=== PATIENT | male | born 1990 | race Hispanic/Latino ===

== ENCOUNTER 2024-05-18 20:27 | Emergency (ER) | payer OTHER ==
[~2024-05-18] VITALS: Ht 162.6 cm; Wt 71.2 kg
[2024-05-18] MEDS ORDERED: REMERON30 MG PO (20:39)
[2024-05-18] MEDS ORDERED: BUSPIRONE HCL10 MG PO (20:39)
[2024-05-18] MEDS ORDERED: BUPRENORPHINE HC8 MG SL (20:39)
[2024-05-18] MEDS ORDERED: ACETAMINOPHEN 500 MG TAB PO ONE (20:45)
[2024-05-18] MEDS ORDERED: TRAMADOL HCL 50 MG HOME.PACK PO ONE (21:30)
[2024-05-18 21:36] VITALS: BP 126/78
== END 2024-05-18 21:30 | disposition home or self-care (01) ==
LOC: ED 20:27
DX: S02.2XXA Fracture of nasal bones, initial encounter for closed fracture (principal); Y04.0XXA Assault by unarmed brawl or fight, initial encounter; Y92.149 Unspecified place in prison as the place of occurrence of the external cause; Z79.899 Other long term (current) drug therapy
CPT/HCPCS: 70486; 99284-25; A9270